=== PATIENT | male | born 1950 | race Native Hawaiian/Other Pacific Islander ===

== ENCOUNTER 2016-11-17 09:44 | Emergency (ER) | payer OTHER ==
[~2016-11-17] VITALS: Ht 177.8 cm; Wt 88.5 kg
[~2016-11-17 09:44] MED LIST: ASA LO-DOSE81 MG OR; DIALYVITE800 MG OR; EDLUAR10 MG PO; LABETALOL100 MG OR; LISI20TA11 PO; NEURONTIN 100M100 MG OR; NORCO 10/325***1 TAB PO; RENVELA800 MG OR; SIMV20TA2 PO
[2016-11-17 09:55] VITALS: TEMP 97.8
[2016-11-17 10:35] LABS: PLATELET COUNT 156 K/uL (142-355)
[2016-11-17 10:53] LABS: POTASSIUM 3.4 mmol/L (3.6-5.2)
[2016-11-17 11:21] VITALS: BP 198/64
== END 2016-11-17 11:22 | disposition home or self-care (01) ==
LOC: ED 09:44
DX: I10 Essential (primary) hypertension (principal); N18.9 Chronic kidney disease, unspecified
CPT/HCPCS: 36415; 80053; 85027; 96374; 99283; J3490

== ENCOUNTER 2016-11-19 10:15 | Outpatient (CLI) | payer OTHER ==
[2016-11-19] MEDS ORDERED: OMEPRAZOLE20 M1 OR (17:24)
[2016-11-19] MEDS ORDERED: PROTONIX20 MG PO (17:24)
[2016-11-19] MEDS ORDERED: ELIQUIS5 MG OR (17:24)
== END 2016-11-19 10:16 | disposition short-term general hospital (02) ==
LOC: AMB 10:15
DX: I10 Essential (primary) hypertension (principal)
CPT/HCPCS: A0425; A0429

== ENCOUNTER 2016-11-19 10:16 | Observation (INO) | payer OTHER ==
[~2016-11-19] VITALS: Ht 177.8 cm; Wt 88.5 kg
[2016-11-19] VITALS (13 sets, daily range): BP systolic 122–223; BP diastolic 81–115; TEMP 97.9–98.2; Ht 177.8 cm; Wt 88.5 kg
[2016-11-19 11:16] LABS: PLATELET COUNT 166 K/uL (142-355)
[2016-11-19 11:28] LABS: POTASSIUM 3.8 mmol/L (3.6-5.2)
[2016-11-19] MEDS ORDERED: PROTONIX20 MG PO (17:24)
[2016-11-19] MEDS ORDERED: ELIQUIS5 MG OR (17:24)
[2016-11-19] MEDS ORDERED: OMEPRAZOLE20 M1 OR (17:24)
[2016-11-20] VITALS (7 sets, daily range): BP systolic 176–204; BP diastolic 80–100; TEMP 98–98.5
--- NOTE | 2016-11-20 03:44 | NUR ---
11/19/[address] HUGHES DUE TO PT C/O HEADACHE AND UPPER ABD PAIN, REQUESTING HIS HOME MEDICATION FOR PAIN. GI COCKTAIL 30ML PO X 1 DOSE NOW AND NORCO 10/325MG PO X 1 DOSE. T. O. R&V DR. HUGHES/QUINCY MARIN RN.
--- NOTE | 2016-11-20 03:46 | NUR ---
11/19/16 AT 2207ORDER CLARIFICATION PER REQUEST OF PHARM-D. HYDRALAZINE 50MG IM Q8 HOURS PRN OF SYSTOLIC OVER 210. T. O. R&V DR. BEAVER/QUINCY MARIN RN.
--- NOTE | 2016-11-20 06:26 | NUR ---
11/20/16 AT 0400FLUSHED IV LOCK IN R FA EASILY WITH 10ML NS, NO PROBLEMS NOTED TO SITE.
[2016-11-20 12:18] LABS: PLATELET COUNT 158 K/uL (142-355)
[2016-11-20 13:47] LABS: POTASSIUM 4.5 mmol/L (3.6-5.2)
--- NOTE | 2016-11-20 18:22 | NUR ---
REPORT CALLED TO GINGER MOORE RN AT [facility] IN [place], [place]
== END 2016-11-20 18:01 | disposition short-term general hospital (02) ==
LOC: ED 10:16 → MED/SURG 18:30
PROVIDERS: Emergency Medicine
DX: I10 Essential (primary) hypertension (principal); K21.9 Gastro-esophageal reflux disease without esophagitis; N18.6 End stage renal disease; R10.13 Epigastric pain; J32.2 Chronic ethmoidal sinusitis; N18.9 Chronic kidney disease, unspecified; R51 Headache
CPT/HCPCS: 36415; 80053; 82150; 83690; 83735; 85027; 86318; 96374; 99220; 99283; G0378; J3490

== ENCOUNTER 2016-11-20 18:01 | Outpatient (CLI) | payer OTHER ==
[~2016-11-20 18:01] MED LIST changes: +ELIQUIS5 MG OR; +OMEPRAZOLE20 M1 OR; +PROTONIX20 MG PO
== END 2016-11-20 19:08 | disposition short-term general hospital (02) ==
LOC: AMB 18:01
DX: I10 Essential (primary) hypertension (principal); K21.9 Gastro-esophageal reflux disease without esophagitis; N18.6 End stage renal disease; R10.13 Epigastric pain; J32.2 Chronic ethmoidal sinusitis; R51 Headache
CPT/HCPCS: A0425; A0427

== ENCOUNTER 2017-08-21 08:19 | Outpatient (CLI) | payer OTHER ==
[2017-08-21] MEDS ORDERED: BACL10TA4 PO ×2 (09:39)
[2017-08-21] MEDS ORDERED: NEURONTIN 100M100 MG OR ×2 (09:40)
== END 2017-08-21 08:20 | disposition short-term general hospital (02) ==
LOC: AMB 08:19
DX: R41.82 Altered mental status, unspecified (principal)
CPT/HCPCS: A0425; A0427

== ENCOUNTER 2017-08-21 08:20 | Inpatient (IN) | payer OTHER ==
[~2017-08-21] VITALS: Ht 175.3 cm; Wt 78.5 kg
[2017-08-21] VITALS (10 sets, daily range): BP systolic 128–217; BP diastolic 56–109; TEMP 98–98.1; Ht 175.3 cm; Wt 78.5 kg
[2017-08-21] MEDS ORDERED: BACL10TA4 PO ×2 (09:39)
[2017-08-21] MEDS ORDERED: NEURONTIN 100M100 MG OR ×2 (09:40)
[2017-08-21 11:14] LABS: PARTIAL THROMBOPLASTIN TIME 22.2 SECONDS (24.5-33.6)
--- NOTE | 2017-08-21 14:30 | NUR ---
67 YEAR OLD MALE ADMITTED FROM ER TO DR ROCHA'S SERVICE VIA STRETCHER FROM ER. DX POLYPHARMACY, DIALYSIS, R/O STROKE. PT MOVED TO BED PLACED ON MONITOR. WT 171.4 PT DROWSY CONFUSED. FACIAL GRIMACE WHEN MOVED IN BED. JUVENAL ALVARADO RN HERE TO START DIALYSIS.
--- NOTE | 2017-08-21 14:38 | NUR ---
PT STARTED ON DIALYSIS. RESTING QUIETLY HOB SLIGHT ELEVATED.
--- NOTE | 2017-08-21 15:14 | NUR ---
DR ROCHA VISITED. DIALYSIS CONTINUES.
--- NOTE | 2017-08-21 17:47 | NUR ---
CONTINUES ON DIALYSIS FAMILY VISITED SISTER WILL TALK WITH DR ROCHA ABOUT PT CONDITION. PT RESTING QUIETLY.
--- NOTE | 2017-08-21 18:04 | NUR ---
HOLDING DIET TRAY FOR NOW, PATIENT CONTINUES ON DIALYSIS, WILL NEED TO CHECK PATIENT MENTAL STATUS AFTER DIALYSIS SEE HOW WELL HE CAN TAKE FOOD AND FLUIDS.
--- NOTE | 2017-08-21 18:38 | NUR ---
DIALYSIS FINISHED, PT KEKE OK, NOTED IMPROVE SPEECH. PT TALKING A LITTLE MORE EASIER TO UNDERSTAND. WILL CHECK TO SEE HOW PT CAN TAKE FLUIDS. IMPROVED MENTAL STATUS.
--- NOTE | 2017-08-21 20:00 | NUR ---
PT TOLERATED DIAYLYSIS. PT IS ALERT AND ORIENTED THEN HAS MOMENTS OF BEING CONFUSED. WHEN ORIENTED BY STAFF PT UNDERSTANDS SITUATION. NO NEURO DEFICITS NOTED. HAND ANIMAL RIDES MANAGER ARE EQUAL AND STRONG. FOOT PUSHES ARE STRONG. PT ATE 100 PERCENT OF HIS PM MEAL AND DRANK WATER. VITAL SIGNS ARE STABLE. FAMILY VISITED.
[2017-08-22] VITALS (11 sets, daily range): BP systolic 103–143; BP diastolic 62–88; TEMP 97.9–99
--- NOTE | 2017-08-22 06:01 | NUR ---
PT WAS ASSITED UP ON BSC AND PT HAD LARGE HARD FORMED STOOL. PT HAD DIFFICULTY PASSING STOOL. PT TRANSFERRED TO BSC WITH MINIMAL ASSISTANCE. PT HAS BEEN PLEASANT AND REQUIRES MINMAL ASSISTANCE.
--- NOTE | 2017-08-22 07:00 | NUR ---
PATIENT UP AT BEDSIDE COMMODE, PATIENT HAD A LARGE LOOSE BOWEL MOVEMENT.
[2017-08-22 08:03] LABS: PLATELET COUNT 208 K/uL (142-355)
[2017-08-22 08:12] LABS: POTASSIUM 4.7 mmol/L (3.6-5.2)
--- NOTE | 2017-08-22 09:21 | NUR ---
ELMER HOOK INFORMATICS SPECIALIST AT PATIENT'S BEDSIDE
--- NOTE | 2017-08-22 14:41 | NUR ---
PATIENT TRANSFERING TO MED SURG FLOOR. REPORT GIVEN TO NADIRA WHARTON RN.
--- NOTE | 2017-08-22 15:00 | NUR ---
IV TO PTS RIGHT AC D/C'D. IV 22G RESTARTED IN PTS RIGHT FOREARM X1 ATTEMPT SUCCESSFUL. PT TOLERATED PROCEDURE WELL.
--- NOTE | 2017-08-22 15:15 | NUR ---
PT TRANSPORTED TO MED/SURG ROOM 1107 VIA WC. NAD NOTED.
--- NOTE | 2017-08-22 15:15 | NUR ---
Pt. TRANSFERRED TO ROOM 1107. Pt. HAS GENERALIZED WEAKNESS. Pt. TO BATHROOM WITH TO PERSON ASSIST. ORIENTED TO ROOM.
[2017-08-23] VITALS: BP 129/67; TEMP 97.8
[2017-08-23 04:00] VITALS: BP 134/82; TEMP 97.9
[2017-08-23 06:37] LABS: PLATELET COUNT 162 K/uL (142-355)
[2017-08-23 06:51] LABS: POTASSIUM 4.3 mmol/L (3.6-5.2)
[2017-08-23 08:00] VITALS: BP 138/86; TEMP 98.2
[2017-08-23 12:00] VITALS: BP 146/70; TEMP 98.7
--- NOTE | 2017-08-23 14:00 | NUR ---
IV D/C'd. DISCHARGE INSTRUCTIONS SIGNED AND GIVEN. Pt. EXIT OUT OF FRONT ENTRANCE VIA W/C.
== END 2017-08-23 14:00 | disposition home or self-care (01) | DRG 91 ==
LOC: ED 08:20 → ICU 11:50 → MED/SURG 15:00
DX: R47.1 Dysarthria and anarthria (principal); N18.6 End stage renal disease; I12.0 Hypertensive chronic kidney disease with stage 5 chronic kidney disease or end stage renal disease; Q61.3 Polycystic kidney, unspecified; R41.0 Disorientation, unspecified; K21.9 Gastro-esophageal reflux disease without esophagitis; R53.1 Weakness; M15.8 Other polyosteoarthritis; Z86.73 Personal history of transient ischemic attack (TIA), and cerebral infarction without residual deficits; R53.83 Other fatigue; T42.8X5A Adverse effect of antiparkinsonism drugs and other central muscle-tone depressants, initial encounter; T42.6X5A Adverse effect of other antiepileptic and sedative-hypnotic drugs, initial encounter; T39.1X5A Adverse effect of 4-Aminophenol derivatives, initial encounter; Y92.89 Other specified places as the place of occurrence of the external cause; R41.82 Altered mental status, unspecified
CPT/HCPCS: 36415; 80053; 82565; 84520; 85027; 85610; 85730; 93005; 96374; 99285; J1644; J2405

== ENCOUNTER 2017-10-28 13:26 | Outpatient (CLI) | payer OTHER ==
[~2017-10-28 13:26] MED LIST changes: +BACL10TA4 PO
== END 2017-10-28 18:22 | disposition home or self-care (01) ==
LOC: LAB 13:26
DX: D64.89 Other specified anemias (principal)
CPT/HCPCS: 85018

== ENCOUNTER 2018-02-10 07:58 | Outpatient (CLI) | payer OTHER | END 2018-02-10 22:07 | disposition home or self-care (01) | LOC: LAB 07:58 | DX: D64.89 Other specified anemias (principal) | CPT/HCPCS: 85014; 85018 ==

== ENCOUNTER 2019-06-27 15:00 | Outpatient (CLI) | payer OTHER | END 2019-06-27 21:11 | disposition home or self-care (01) | LOC: LAB 15:00 | DX: I95.89 Other hypotension (principal) | CPT/HCPCS: 82533 ==

== ENCOUNTER 2019-09-09 12:02 | Outpatient (CLI) | payer OTHER | END 2019-09-09 19:40 | disposition home or self-care (01) | LOC: LAB 12:02 | DX: D64.89 Other specified anemias (principal) | CPT/HCPCS: 85014; 85018 ==

== ENCOUNTER 2020-03-02 12:32 | Outpatient (CLI) | payer OTHER ==
[2020-03-02 12:53] LABS: PLATELET COUNT 209 K/uL (142-355)
== END 2020-03-02 19:48 | disposition home or self-care (01) ==
LOC: LAB 12:32
PROVIDERS: ATTEND Internal Medicine Nephrology
DX: M86.8X8 Other osteomyelitis, other site (principal)
CPT/HCPCS: 82550; 85027; 85651; 86140

== ENCOUNTER 2020-03-09 14:31 | Outpatient (CLI) | payer OTHER ==
[2020-03-09 15:11] LABS: PLATELET COUNT 224 K/uL (142-355)
== END 2020-03-09 20:03 | disposition home or self-care (01) ==
LOC: LAB 14:31
PROVIDERS: Internal Medicine
DX: M86.672 Other chronic osteomyelitis, left ankle and foot (principal)
CPT/HCPCS: 82550; 85027; 85651; 86140

== ENCOUNTER 2020-10-16 10:16 | Outpatient (CLI) | payer OTHER | END 2020-10-16 19:17 | disposition home or self-care (01) | LOC: INF 10:16 | PROVIDERS: ATTEND Internal Medicine | DX: Z23 Encounter for immunization (principal) | CPT/HCPCS: 96372 ==

== ENCOUNTER 2020-10-16 11:08 | Outpatient (CLI) | payer OTHER | END 2020-10-16 19:19 | disposition home or self-care (01) | LOC: RAD 11:08 | PROVIDERS: ATTEND Family Medicine | DX: T81.89XA Other complications of procedures, not elsewhere classified, initial encounter (principal) ==

== ENCOUNTER 2020-10-30 09:38 | Outpatient (CLI) | payer OTHER ==
[~2020-10-30] VITALS: Ht 177.8 cm; Wt 90.7 kg
[2020-10-30 09:50] VITALS: BP 113/63; TEMP 98.4
[2020-10-30 11:32] VITALS: BP 102/66
== END 2020-10-30 21:47 | disposition home or self-care (01) ==
LOC: INF 09:38
PROVIDERS: ATTEND Internal Medicine
DX: M86.8X8 Other osteomyelitis, other site (principal)
CPT/HCPCS: 96365; J0875

== ENCOUNTER 2020-11-06 09:17 | Outpatient (CLI) | payer OTHER ==
[~2020-11-06] VITALS: Ht 177.8 cm; Wt 90.7 kg
== END 2020-11-06 20:04 | disposition home or self-care (01) ==
LOC: INF 09:17
PROVIDERS: ATTEND Internal Medicine
DX: M86.8X8 Other osteomyelitis, other site (principal)
CPT/HCPCS: 96365; J0875

== ENCOUNTER 2020-11-13 09:37 | Outpatient (CLI) | payer OTHER | END 2020-11-13 19:10 | disposition home or self-care (01) | LOC: INF 09:37 | PROVIDERS: ATTEND Internal Medicine | DX: Z23 Encounter for immunization (principal) | CPT/HCPCS: 96372 ==